=== PATIENT | female | born 1960 | race Caucasian/White ===

== ENCOUNTER 2020-05-01 22:08 | Emergency (ER) | payer MEDICARE ==
[2020-05-01] MEDS ORDERED: BENADRYL 50 MG/ML IV ONE (22:23)
[2020-05-01] MEDS ORDERED: TORAdol 30 mg Injection IV ONE (22:23)
[2020-05-01] MEDS ORDERED: Inapsine 5 MG/2 ML IV ONE (22:23)
[2020-05-01] MEDS ORDERED: TYLENOL 325 MG PO ONE (22:23)
[2020-05-01 22:33] VITALS: O2SAT 98
[2020-05-01 22:43] LABS: Absolute Neutrophil Ct (ANC) 12.89 (1.4-6.9); BASOPHIL % 0.2 % (0.0-0.4); Basophil (Absolute #) 0.03 (0-0.4); Eosinophil % 0.6 % (0.00-5.0); Eosinophil (Absolute #) 0.09 (0-0.5); Hematocrit 40.8 % (35-47); Hemoglobin 12.5 gm/dl (12.0-16.0); Lymphocyte (Absolute #) 2.29 (1.0-4.6); Lymphocytes % 14.2 % (24.0-44.0); Mean Cell Volume 100.7 fl (78-100); Mean Corpuscular Hemoglobin 30.9 pg (26-32); Mean Corpuscular Hgb Concent. 30.6 g/dl (32-36); Mean Platelet Volume 10.5 fl (7.5-11.0); Monocyte (Absolute #) 0.85 (0.0-1.3); Monocytes % 5.3 % (0.0-12.0); Neutrophil % 79.7 % (36.0-66.0); Platelet Count 223 K/mm3 (150-450); Red Blood Count 4.05 M/mm3 (4.1-5.4); Red Cell Distribution Width 14.3 % (11.5-14.0); White Blood Count 16.2 K/mm3 (4.0-10.5)
--- NOTE | 2020-05-01 22:51 | ERPHSYRPT ---
- History of Present Illness Time Seen by Provider: 05/01/20 22:09 Source: patient Exam Limitations: no limitations Patient Subjective Stated Complaint: pt states "I fell in the kitchen today." "I don't know why, I just fell." Triage Nursing Assessment: pt came into the er via wheelchair; pt is axo x3; c/o back pain, rt hip pain; states 9/10 pain to back; pt states that pain is sharp to the back; pt has tenderness to lower back region; pt has no visible bruising or deformity; pt is obese; pt SOB with movement; hypertensive Physician History: Patient is here with fall. Patient states that she had a fall of uncertain circumstances earlier today. Patient was already seen at [facility]. There she had x-rays of her right ankle right foot and right hip. She states that she went home and stated that her back started to hurt more. Therefore, she arrives to the emergency department. Patient states that she has been taking [place] tens at home. Patient states that she did not hit her head. However, she does not remember the fall. She does not know if it was syncopal versus nonsyncopal. She states that she received the ankle splint she is wearing from [facility]. While she had no chest pain, shortness of breath, nausea, vomiting. Timing/Duration: today Severity: moderate Modifying Factors: Improves With: other Associated Symptoms: other Allergies/Adverse Reactions: adhesive Allergy (Verified 05/01/20 22:20) Penicillins Allergy (Verified 05/01/20 22:20) Hx Tetanus, Diphtheria Vaccination/Date Given: No (unsure) Hx Influenza Vaccination/Date Given: No Hx Pneumococcal Vaccination/Date Given: No Travel Risk - International Travel Have you traveled outside of the country in past 3 weeks: No - Coronavirus Screening Are you exhibiting any of the following symptoms?: No Close contact with a COVID-19 positive Pt in past 14-21 Days: No - Review of Systems Constitutional: No Fever, No Chills Eyes: No Symptoms Ears, Nose, & Throat: No Symptoms Respiratory: No Cough, No Dyspnea Cardiac: No Chest Pain, No Edema, No Syncope Abdominal/Gastrointestinal: No Abdominal Pain, No Nausea, No Vomiting, No Diarrhea Genitourinary Symptoms: No Dysuria Musculoskeletal: Back Pain, Other (Left flank pain.), No Neck Pain Skin: No Rash Neurological: No Dizziness, No Focal Weakness, No Sensory Changes Psychological: No Symptoms Endocrine: No Symptoms All Other Systems: Reviewed and Negative - Past Medical History Pertinent Past Medical History: Yes Musculoskeletal History: Arthritis, Fibromyalgia GI Medical History: Other Other Medical History: colostomy - Past Surgical History Past Surgical History: Yes Gastrointestinal: Cholecystectomy, Other Female Surgical History: Hysterectomy Other Surgical History: colostomy - Social History Smoking Status: Former smoker Exposure to second hand smoke: No Drug Use: none Patient Lives Alone: No - Nursing Vital Signs Nursing Vital Signs: Initial Vital Signs Temperature 97.9 F 05/01/20 22:21 Pulse Rate 98 H 05/01/20 22:21 Respiratory Rate 26 H 05/01/20 22:21 Blood Pressure 160/83 05/01/20 22:21 O2 Sat by Pulse Oximetry 98 05/01/20 22:21 Pain Scale Pain Intensity 9 - Physical Exam General Appearance: no apparent distress, alert Eye Exam: PERRL/EOMI, eyes nml inspection Ears, Nose, Throat Exam: normal ENT inspection, TMs normal, pharynx normal, moist mucous membranes Neck Exam: normal inspection, non-tender, supple, full range of motion Respiratory Exam: normal breath sounds, lungs clear, No respiratory distress Cardiovascular Exam: regular rate/rhythm, normal heart sounds, normal peripheral pulses Gastrointestinal/Abdomen Exam: soft, normal bowel sounds, other (Left flank tenderness to palpation without rebound or guarding.), No tenderness, No mass Back Exam: normal inspection, normal range of motion, No CVA tenderness, No vertebral tenderness Extremity Exam: normal inspection, normal range of motion, pelvis stable Neurologic Exam: alert, oriented x 3, cooperative, normal mood/affect, nml cerebellar function, nml station & gait, sensation nml, No motor deficits Skin Exam: normal color, warm, dry, No rash Lymphatic Exam: No adenopathy SpO2 Interpretation: normal SpO2: 98 Comments: 05/01/20 22:50 No trismus, able to fully extend neck, normal range of motion of neck without pain. Uvula is midline, no swelling of the mouth, noraml oropharynx. No exudate, no signs of meningitis, no floor of mouth swelling, no hot potato voice on exam. No buccal swelling, no gum bleeding, no signs of tooth abscess/infection. No obvious deformity, sensation intact, 2+ capillary refill, 2 point tactile discrimination intact. 5 out of 5 strength. Full range of motion without pain. Compartments are soft, nontender. Overlying skin shows no tenting, bruising, ecchymosis. - Course Nursing assessment & vital signs reviewed: Yes EKG Interpreted by Me: Sinus Rhythm Ordered Tests: Active Orders 24 hr Category Date Time Status EKG-ER Only STAT Care 05/01/20 22:23 Active IV Insertion STAT Care 05/01/20 22:23 Active ABDOMEN AND PELVIS W/0 CONTRAS [CT] Stat Exams 05/01/20 22:24 Taken CBC W DIFF Stat Lab 05/01/20 22:35 Completed CMP Stat Lab 05/01/20 22:35 Completed TROPONIN Q3H Lab 05/01/20 22:35 Completed TROPONIN Q3H Lab 05/02/20 01:30 Ordered TROPONIN Q3H Lab 05/02/20 04:30 Ordered TROPONIN Q3H Lab 05/02/20 07:30 Ordered TROPONIN Q3H Lab 05/02/20 10:30 Ordered UA W/RFX UR CULTURE Stat Lab 05/01/20 22:33 Completed Medication Summary Discontinued Medications Generic Name Dose Route Start Last Admin Trade Name Freq PRN Reason Stop Dose Admin Acetaminophen 975 mg 05/01/20 22:23 05/01/20 23:09 Tylenol 325 Mg PO 05/01/20 22:24 975 mg STAT ONE Administration Acetaminophen Confirm 05/01/20 23:08 Tylenol 325 Mg Administered 05/01/20 23:09 Dose 975 mg .ROUTE .STK-MED ONE Diphenhydramine HCl 25 mg 05/01/20 22:23 05/01/20 23:09 Benadryl 50 Mg/Ml IV 05/01/20 22:24 25 mg STAT ONE Administration Diphenhydramine HCl Confirm 05/01/20 23:08 Benadryl 50 Mg/Ml Administered 05/01/20 23:09 Dose 50 mg .ROUTE .STK-MED ONE Droperidol 1.25 mg 05/01/20 22:23 05/01/20 23:10 Inapsine 5 Mg/2 Ml IV 05/01/20 22:24 1.25 mg STAT ONE Administration Droperidol Confirm 05/01/20 23:08 Inapsine 5 Mg/2 Ml Administered 05/01/20 23:09 Dose 5 mg .ROUTE .STK-MED ONE Ketorolac Tromethamine 30 mg 05/01/20 22:23 05/01/20 23:10 Toradol 30 Mg Injection IV 05/01/20 22:24 30 mg STAT ONE Administration Ketorolac Tromethamine Confirm 05/01/20 23:08 Toradol 30 Mg Injection Administered 05/01/20 23:09 Dose 30 mg .ROUTE .STK-MED ONE Potassium Chloride 40 meq 05/01/20 23:13 05/01/20 23:18 Klor Con 10 Meq PO 05/01/20 23:14 40 meq STAT ONE Administration Potassium Chloride Confirm 05/01/20 23:17 Klor Con 10 Meq Administered 05/01/20 23:18 Dose 40 meq PO .STK-MED ONE Lab/Rad Data: Laboratory Result Diagrams 05/01/20 22:35 05/01/20 22:35 Laboratory Results 05/01/20 05/01/20 05/01/20 Range/Units 22:35 22:35 22:35 WBC 16.2 H (4.0-10.5) K/mm3 RBC 4.05 L (4.1-5.4) M/mm3 Hgb 12.5 (12.0-16.0) gm/dl Hct 40.8 (35-47) % MCV 100.7 H (78-100) fl MCH 30.9 (26-32) pg MCHC 30.6 L (32-36) g/dl RDW 14.3 H (11.5-14.0) % Plt Count 223 (150-450) K/mm3 MPV 10.5 (7.5-11.0) fl Gran % 79.7 H (36.0-66.0) % Eos # (Auto) 0.09 (0-0.5) Absolute Lymphs (auto) 2.29 (1.0-4.6) Absolute Monos (auto) 0.85 (0.0-1.3) Lymphocytes % 14.2 L (24.0-44.0) % Monocytes % 5.3 (0.0-12.0) % Eosinophils % 0.6 (0.00-5.0) % Basophils % 0.2 (0.0-0.4) % Absolute Granulocytes 12.89 H (1.4-6.9) Basophils # 0.03 (0-0.4) Sodium 139 (137-145) mmol/L Potassium 2.9 L* (3.5-5.1) mmol/L Chloride 100 (98-107) mmol/L Carbon Dioxide 34 H (22-30) mmol/L Anion Gap 8.1 (5-15) MEQ/L BUN 5 L (7-17) mg/dL Creatinine 0.67 (0.52-1.04) mg/dL Estimated GFR > 60.0 ML/MIN Glucose 133 H (74-106) mg/dL Calcium 9.1 (8.4-10.2) mg/dL Total Bilirubin 0.50 (0.2-1.3) mg/dL AST 34 (14-36) U/L ALT 23 (0-35) U/L Alkaline Phosphatase 83 (38-126) U/L Troponin I < 0.012 (0.000-0.034) ng/mL Serum Total Protein 7.6 (6.3-8.2) g/dL Albumin 4.0 (3.5-5.0) g/dL Urine Color (YELLOW) Urine Appearance (CLEAR) Urine pH (5-6) Ur Specific [place] (1.005-1.025) Urine Protein (Negative) Urine Ketones (NEGATIVE) Urine Blood (0-5) Coleman/ul Urine Nitrite (NEGATIVE) Urine Bilirubin (NEGATIVE) Urine Urobilinogen (0-1) mg/dL Ur Leukocyte Esterase (NEGATIVE) Urine WBC (Auto) (0-5) /HPF Urine RBC (Auto) (0-2) /HPF U Epithel Cells (Auto) (FEW) /HPF Urine Bacteria (Auto) (NEGATIVE) /HPF Urine Culture Reflexed (NO) Urine Glucose (NEGATIVE) mg/dL 30/20 Range/Units 22:33 WBC (4.0-10.5) K/mm3 RBC (4.1-5.4) M/mm3 Hgb (12.0-16.0) gm/dl Hct (35-47) % MCV (78-100) fl MCH (26-32) pg MCHC (32-36) g/dl RDW (11.5-14.0) % Plt Count (150-450) K/mm3 MPV (7.5-11.0) fl Gran % (36.0-66.0) % Eos # (Auto) (0-0.5) Absolute Lymphs (auto) (1.0-4.6) Absolute Monos (auto) (0.0-1.3) Lymphocytes % (24.0-44.0) % Monocytes % (0.0-12.0) % Eosinophils % (0.00-5.0) % Basophils % (0.0-0.4) % Absolute Granulocytes (1.4-6.9) Basophils # (0-0.4) Sodium (137-145) mmol/L Potassium (3.5-5.1) mmol/L Chloride (98-107) mmol/L Carbon Dioxide (22-30) mmol/L Anion Gap (5-15) MEQ/L BUN (7-17) mg/dL Creatinine (0.52-1.04) mg/dL Estimated GFR ML/MIN Glucose (74-106) mg/dL Calcium (8.4-10.2) mg/dL Total Bilirubin (0.2-1.3) mg/dL AST (14-36) U/L ALT (0-35) U/L Alkaline Phosphatase (38-126) U/L Troponin I (0.000-0.034) ng/mL Serum Total Protein (6.3-8.2) g/dL Albumin (3.5-5.0) g/dL Urine Color STRAW (YELLOW) Urine Appearance CLEAR (CLEAR) Urine pH 6.0 (5-6) Ur Specific [place] 1.004 (1.005-1.025) Urine Protein NEGATIVE (Negative) Urine Ketones NEGATIVE (NEGATIVE) Urine Blood NEGATIVE (0-5) Coleman/ul Urine Nitrite NEGATIVE (NEGATIVE) Urine Bilirubin NEGATIVE (NEGATIVE) Urine Urobilinogen NEGATIVE (0-1) mg/dL Ur Leukocyte Esterase NEGATIVE (NEGATIVE) Urine WBC (Auto) NONE (0-5) /HPF Urine RBC (Auto) NONE (0-2) /HPF U Epithel Cells (Auto) NONE (FEW) /HPF Urine Bacteria (Auto) NONE (NEGATIVE) /HPF Urine Culture Reflexed NO (NO) Urine Glucose NEGATIVE (NEGATIVE) mg/dL - Progress Progress: improved Progress Note: 05/01/20 22:51 We will obtain basic labs, EKG, CT of the abdomen looking for trauma. CT of the pelvis looking for any further hip or pelvis fractures. Will give ibuprofen and Tylenol in the emergency department. 05/01/20 23:21 - I feel comfortable with one time negative troponin given symptoms have improved and started greater then 6 hours ago. - EKG shows no ST changes - my read. See full read below. - O2 saturations consistently greater than 95%. - CT shows no traumatic injuries - no other obvious lab abnormalities, outside of hypokalemia Patient is most likely safe to go home at this point in time. We will discharge her with home potassium. Patient states that she has consistently low potassium. This is nothing new. However, we will give her medication. Plan of care was discussed with patient and all questions answered. The patient is agreeable to be discharged home and both verbal and printed discharge instructions were provided.The patient agreed to seek outpatient follow up as discussed. The patient was given strict instructions to return to the emergency department for worsening symptoms or any other emergent concerns. The patient verbalized understanding. Counseled pt/family regarding: lab results, diagnosis, need for follow-up, rad results - Departure Departure Disposition: Home Clinical Impression: Back pain, Fall at home, Hypokalemia, Right ankle sprain Condition: Stable Critical Care Time: No Referrals: Provider,Unknown [Primary Care Provider] - Instructions: Contusion (DC), Preventing Falls Prescriptions: Potassium Chloride 10 Meq Tab* [Klor Con 10 MEQ] 40 meq PO DAILY 14 Days #56 tab
[2020-05-01 22:53] LABS: Appearance CLEAR (CLEAR); Bilirubin NEGATIVE (NEGATIVE); Blood NEGATIVE Ery/ul (0-5); Glucose NEGATIVE (NEGATIVE); Ketones NEGATIVE (NEGATIVE); Leukocyte Esterase NEGATIVE (NEGATIVE); Nitrite NEGATIVE (NEGATIVE); Protein,Urine Dip NEGATIVE (Negative); Specific Gravity 1.004 (1.005-1.025); Urobilinogen NEGATIVE mg/dL (0-1)
[2020-05-01 23:02] LABS: ALKALINE PHOSPHATASE 83 U/L (38-126); ANION GAP 8.1 MEQ/L (5-15); BLOOD UREA NITROGEN 5 mg/dL (7-17); CHLORIDE 100 mmol/L (98-107); Calcium 9.1 mg/dL (8.4-10.2); Carbon Dioxide 34 mmol/L (22-30); Creatinine 1 0.67 mg/dL (0.52-1.04); EST GLOMERULAR FILTRATION RATE > 60.0 ML/MIN; Glucose 133 mg/dL (74-106); SGOT/AST 34 U/L (14-36); SGPT/ALT 23 U/L (0-35); SODIUM 139 mmol/L (137-145); Total Protein 7.6 g/dL (6.3-8.2)
[2020-05-01 23:06] LABS: Potassium 2.9 mmol/L (3.5-5.1)
[2020-05-01] MEDS ORDERED: TORAdol 30 mg Injection ONE (23:08)
[2020-05-01] MEDS ORDERED: BENADRYL 50 MG/ML ONE (23:08)
[2020-05-01] MEDS ORDERED: TYLENOL 325 MG ONE (23:08)
[2020-05-01] MEDS ORDERED: Inapsine 5 MG/2 ML ONE (23:08)
[2020-05-01] MEDS ORDERED: Klor Con 10 MEQ PO ONE ×2 (23:13→23:17)
[2020-05-01 23:27] VITALS: BP 106/88; PULSE 90
--- NOTE | 2020-05-02 08:57 | XRAY ---
Indication: Pain following fall. Multiple contiguous axial images obtained through the abdomen and pelvis without contrast as ordered. Comparison: July 25, 2007. Lung bases demonstrates incidental right lower lobe calcified granuloma. No infiltrate or effusion. Heart is borderline enlarged. Noncontrasted stomach and bowel loops appear nonobstructed. New left lower quadrant colostomy. Rectal stump unremarkable. No free fluid/air. Mild diffuse fatty liver, fatty replaced pancreas, cholecystectomy, and hysterectomy. Remaining liver, pancreas, spleen, adrenal glands, kidneys, ureters, and bladder are unremarkable for noncontrast exam. Minimal aortic calcifications without AAA. Osseous structures intact with minimal degenerative changes throughout the thoracolumbar spine. Impression: 1. New left lower quadrant colostomy. 2. Incidental fatty liver, borderline cardiomegaly, and right lower lobe calcified granuloma. 3. No acute intra-abdominal/pelvic abnormalities on this noncontrast exam. Comment: Preliminary interpretation was made by C. No critical discrepancy.
== END 2020-05-01 23:40 | disposition home or self-care (01) ==
LOC: ED 22:08
DX: M54.5 Low back pain (principal); W01.0XXA Fall on same level from slipping, tripping and stumbling without subsequent striking against object, initial encounter; E87.6 Hypokalemia; S93.401A Sprain of unspecified ligament of right ankle, initial encounter; Z79.891 Long term (current) use of opiate analgesic
CPT/HCPCS: 36000; 36415; 74176; 80053; 81001; 84484; 85025; 93005; 96374; 96375; 99284; J1200; J1885; A9270-GY

== ENCOUNTER 2024-01-26 07:56 | Day surgery (SDC) | payer MEDICARE ==
[2024-01-26] MEDS ORDERED: Decadron 4 MG INJ IV ONE (07:57)
[2024-01-26] MEDS ORDERED: Depo-Medrol 40 MG/ML IM ONE (07:57)
[2024-01-26] MEDS ORDERED: BUPIVACAINE 0.5% VIAL IJ ONE (07:57)
[2024-01-26] MEDS ORDERED: LIDOCAINE HCL 1% AMPUL 5 ML IJ ONE (07:57)
[2024-01-26] MEDS ORDERED: Lactated Ringers 1,000 ML IV ONE (09:54)
[2024-01-26] MEDS ORDERED: DIPRIVAN 200 MG/20 ML IV ONE ×2 (10:01→10:15)
--- NOTE | 2024-01-26 11:58 | XRAY ---
Indication: Bilateral SI joints and piriformis injection. Intraoperative fluoroscopy provided for 1 minute 53 seconds. 4 digital spot image submitted for interpretation demonstrates posterior needle tips projecting over the expected left/right SI joints and left/right piriformis. Small amount of contrast injected for all needle tip placement. Correlate with intraoperative findings/report.
--- NOTE | 2024-01-26 13:08 | XRAY ---
One minute and 53 seconds of fluoroscopy was used in surgery for a bilateral sacroiliac joint and piriformis injection.
== END 2024-01-26 10:45 | disposition home or self-care (01) ==
LOC: SDC-PAIN 07:56
PROVIDERS: ATTEND Psychiatry & Neurology Pain Medicine
DX: M46.1 Sacroiliitis, not elsewhere classified (principal); M79.18 Myalgia, other site
CPT/HCPCS: 01992; 20552; 27096; 72202; 77002; 82947; G0260; J1100; J2704; Q9966

== ENCOUNTER 2024-03-08 08:43 | Day surgery (SDC) | payer MEDICARE ==
[2024-03-08] MEDS ORDERED: Depo-Medrol 40 MG/ML IM ONE (08:44)
[2024-03-08] MEDS ORDERED: Xylocaine-Mpf 2% 5 Ml Vial IJ ONE (08:44)
[2024-03-08] MEDS ORDERED: DIPRIVAN 200 MG/20 ML IV ONE (10:48)
--- NOTE | 2024-03-08 11:40 | XRAY ---
Indication: Bilateral L4-S1 MBB. Intraoperative fluoroscopy provided for 26 seconds. Single digital spot image submitted for interpretation demonstrates posterior needle tips projecting over the expected left and right L4-S1 nerve roots. Correlate with intraoperative findings/report.
--- NOTE | 2024-03-08 11:44 | XRAY ---
26 seconds of fluoroscopy was used in surgery for a bilateral L4-S1 MBB.
== END 2024-03-08 11:24 | disposition home or self-care (01) ==
LOC: SDC-PAIN 08:43
PROVIDERS: ATTEND Psychiatry & Neurology Pain Medicine
DX: M47.816 Spondylosis without myelopathy or radiculopathy, lumbar region (principal); E11.9 Type 2 diabetes mellitus without complications
CPT/HCPCS: 72020; 77002; 82947; J2704

== ENCOUNTER 2024-04-13 09:03 | Day surgery (SDC) | payer MEDICARE ==
[2024-04-13] MEDS ORDERED: BUPIVACAINE 0.5% VIAL IJ ONE (09:04)
[2024-04-13] MEDS ORDERED: DIPRIVAN 200 MG/20 ML IV ONE (10:41)
--- NOTE | 2024-04-13 12:21 | XRAY ---
24 seconds of fluoroscopy was used in surgery for a bilateral L4-S1 MBB.
--- NOTE | 2024-04-13 12:21 | XRAY ---
Indication: Bilateral L4-S1 MBB. Intraoperative fluoroscopy provided for 24 seconds. Single digital spot image submitted for interpretation demonstrates posterior needle tips projecting over the expected left and right L4-S1 nerve roots. Correlate with intraoperative findings/report.
== END 2024-04-13 11:14 | disposition home or self-care (01) ==
LOC: SDC-PAIN 09:03
PROVIDERS: ATTEND Psychiatry & Neurology Pain Medicine
DX: M47.816 Spondylosis without myelopathy or radiculopathy, lumbar region (principal); E11.9 Type 2 diabetes mellitus without complications
CPT/HCPCS: 64493; 64494; 72020; 77002; 82947; J2704

== ENCOUNTER 2024-07-05 07:44 | Day surgery (SDC) | payer MEDICARE ==
[2024-07-05] MEDS ORDERED: LIDOCAINE HCL 1% AMPUL 5 ML IJ ONE (07:45)
[2024-07-05] MEDS ORDERED: Depo-Medrol 40 MG/ML IM ONE (07:45)
[2024-07-05] MEDS ORDERED: BUPIVACAINE 0.5% VIAL IJ ONE (07:45)
[2024-07-05] MEDS ORDERED: Lactated Ringers 500 ML IV ONE (08:17)
[2024-07-05] MEDS ORDERED: Zofran 4 MG/2 ML VIAL ONE (08:49)
[2024-07-05] MEDS ORDERED: propofoL IV ONE (09:53)
--- NOTE | 2024-07-05 11:37 | XRAY ---
Indication: Left L4-S1 RFA. Interoperative fluoroscopy provided for 26 seconds. 4 digital spot image submitted for interpretation demonstrates posterior needle tips project over expected left L4-S1 nerve root. Correlate with intraoperative findings/report.
--- NOTE | 2024-07-05 11:44 | XRAY ---
26 seconds of fluoroscopy was used in surgery for a left L4-S1 RFA.
== END 2024-07-05 10:34 | disposition home or self-care (01) ==
LOC: SDC-PAIN 07:44
PROVIDERS: ATTEND Psychiatry & Neurology Pain Medicine
DX: M47.817 Spondylosis without myelopathy or radiculopathy, lumbosacral region (principal); E11.9 Type 2 diabetes mellitus without complications
CPT/HCPCS: 64635; 64636; 72100; 77002; 82947; J2405; J2704

== ENCOUNTER 2024-07-12 08:17 | Day surgery (SDC) | payer MEDICARE ==
[2024-07-12] MEDS ORDERED: BUPIVACAINE 0.5% VIAL IJ ONE (08:18)
[2024-07-12] MEDS ORDERED: LIDOCAINE HCL 1% AMPUL 5 ML IJ ONE (08:18)
[2024-07-12] MEDS ORDERED: Depo-Medrol 40 MG/ML IM ONE (08:18)
[2024-07-12] MEDS ORDERED: Lactated Ringers 500 ML IV ONE (08:22)
[2024-07-12] MEDS ORDERED: propofoL IV ONE (09:53)
--- NOTE | 2024-07-12 11:29 | XRAY ---
Indication: Right L4-S1 RFA. Intraoperative fluoroscopy provided for 31 second. 3 digital spot image submitted for interpretation demonstrates posterior needle tips project over expected right L4-S1 nerve roots. Correlate with intraoperative findings/report.
--- NOTE | 2024-07-12 14:44 | XRAY ---
31 seconds of fluoroscopy was used in surgery for a right L4-S1 RFA.
== END 2024-07-12 10:33 | disposition home or self-care (01) ==
LOC: SDC-PAIN 08:17
PROVIDERS: ATTEND Psychiatry & Neurology Pain Medicine
DX: M47.816 Spondylosis without myelopathy or radiculopathy, lumbar region (principal); E11.9 Type 2 diabetes mellitus without complications
CPT/HCPCS: 64635; 64636; 72100; 77002; 82947; J2704